=== PATIENT | male | born 1955 | race Caucasian/White ===

== ENCOUNTER 2020-05-28 15:52 | Emergency (ER) | payer OTHER ==
[~2020-05-28] VITALS: Ht 188 cm; Wt 113.0 kg
[2020-05-28] MEDS ORDERED: NEURONTIN400 MG PO (16:11)
[2020-05-28] MEDS ORDERED: JANTOVEN2.5 MG PO (16:11)
[2020-05-28] MEDS ORDERED: BAYER CHEWABLE81 MG PO (16:12)
[2020-05-28] MEDS ORDERED: NEXIUM 24HR20 M2 PO (16:12)
[2020-05-28] MEDS ORDERED: NORCO 5-325 TA1 EACH PO (16:59)
== END 2020-05-28 17:20 | disposition home or self-care (01) ==
LOC: ED 15:52
DX: S63.502A Unspecified sprain of left wrist, initial encounter (principal); J45.909 Unspecified asthma, uncomplicated; Z88.2 Allergy status to sulfonamides; Z79.899 Other long term (current) drug therapy; Z79.01 Long term (current) use of anticoagulants; Z79.82 Long term (current) use of aspirin; V47.5XXA Car driver injured in collision with fixed or stationary object in traffic accident, initial encounter
CPT/HCPCS: 73110; 99284-25